=== PATIENT | male | born 1935 ===

== ENCOUNTER → 2025-05-21 13:15 | Outpatient (BNVA) | payer MEDICARE, OTHER, SELFPAY | PROVIDERS: Visit Provider Nurse Practitioner Family | DX: R23.3 Spontaneous ecchymoses (principal); L57.8 Other skin changes due to chronic exposure to nonionizing radiation; L73.8 Other specified follicular disorders; L81.4 Other melanin hyperpigmentation; X32.XXXA Exposure to sunlight, initial encounter; L82.1 Other seborrheic keratosis; L91.8 Other hypertrophic disorders of the skin; Z08 Encounter for follow-up examination after completed treatment for malignant neoplasm; Z86.007 Personal history of in-situ neoplasm of skin; L57.0 Actinic keratosis | CPT/HCPCS: 17000; 99213 ==